=== PATIENT | male | born 1990 | race Caucasian/White ===

== ENCOUNTER 2024-08-31 22:33 | Emergency (ER) | payer MEDICAID ==
[~2024-08-31] VITALS: Ht 170.2 cm; Wt 83.0 kg
[2024-08-31 22:53] VITALS: O2SAT 98
[2024-08-31] MEDS ORDERED: IBUP-2028 MT (23:56)
[2024-08-31] MEDS ORDERED: PRED5TAB48 MT (23:56)
[2024-08-31] MEDS ORDERED: ACET-2708 MT (23:56)
[2024-09-01 00:31] VITALS: BP 121/68; PULSE 82; RESP 16; TEMP 37.05852; O2SAT 98
== END 2024-09-01 00:34 | disposition home or self-care (01) ==
LOC: ER 22:33
DX: R50.9 Fever, unspecified (principal); R05.9 Cough, unspecified
CPT/HCPCS: 87070; 87430; 87804; 99283